=== PATIENT | female | born 1960 | race Caucasian/White ===

== ENCOUNTER 2018-09-16 08:00 | Outpatient (RCR) | payer MEDICARE, MEDICAID ==
[2018-09-12 10:10] VITALS: BP 136/93; PULSE 76; TEMP 97
[2018-09-13 07:41] VITALS: BP 129/78; PULSE 89; TEMP 97.8
[2018-09-14 08:00] VITALS: BP 133/55; PULSE 85; TEMP 97.5
[2018-09-15 08:26] VITALS: BP 126/77; PULSE 68; TEMP 97.6
[~2018-09-16] VITALS: Ht 160 cm; Wt 107.6 kg
[~2018-09-16 08:00] MED LIST: ALKA-SELTZER HE1 TEF PO; AMBIEN 10MG10 MG PO; ANTIVERT 25MG25 MG PO; BENADRYL25 M2 PO; BIOTENE DRY M1000 ML MM; CENTRUM SILVER1 TAB; COMPAZINE 110 MG/TAB PO; DEPAKOTE ER 50500 MG PO; IMITREX50 MG PO; IMODIUM A-D2 MG PO; INVEGA9 MG PO; KLONOPIN WAFER0.5 MG PO; LAMICTAL 100MG100 MG PO; LIORESAL20 MG PO; MAG-OX 400400 MG/TAB PO; MIRALAX PA17 GM/Dose PO; MUCINEX DM 30 M1 TE1; NATURAL POTASS595 MG; NEURONTIN300 MG/CAP PO; PAXIL40 MG PO; TORADOL 10MG TA10 MG PO; TRIAMCINOLONE A15 G1 TP; TYLENOL 325MG325 MG PO; VESICARE10 MG PO; VITAMIN D31000 I1 PO; VOLTAREN-XR100 MG PO; [UNRECOGNIZED DRUG - OTHER] TP
[2018-09-16 08:10] VITALS: BP 143/68; PULSE 66; TEMP 97.7
--- NOTE | 2018-09-16 09:21 | NUR ---
Pt celia solumedrol well. Pt discharged per w/c with halfway staff.
== END 2018-09-16 09:22 | disposition home or self-care (01) ==
LOC: EUO 08:00
DX: G35 Multiple sclerosis (principal)
CPT/HCPCS: J2930; J7050